=== PATIENT | female | born 1960 | race Caucasian/White ===

== ENCOUNTER 2017-12-26 09:57 | Emergency (ER) | payer OTHER ==
[~2017-12-26] VITALS: Ht 154.9 cm; Wt 57.3 kg
[~2017-12-26 09:57] MED LIST: diphenhydrAMINE 50 MG/ML VIAL ONE
[2017-12-26 10:04] VITALS: BP 133/100
[2017-12-26] MEDS ORDERED: IBUPROFEN 800 MG TAB PO ONE (10:30)
[2017-12-26] MEDS ORDERED: IBUPROFEN 800 MG TAB ONE (10:40)
[2017-12-26 11:05] VITALS: BP 133/100
== END 2017-12-26 11:05 | disposition home or self-care (01) ==
LOC: MED 09:57
DX: S09.8XXA Other specified injuries of head, initial encounter (principal); W01.10XA Fall on same level from slipping, tripping and stumbling with subsequent striking against unspecified object, initial encounter; Y93.89 Activity, other specified; Y92.89 Other specified places as the place of occurrence of the external cause; Y99.8 Other external cause status
CPT/HCPCS: 99282; J1200